=== PATIENT | male | born 1965 | race Caucasian/White ===

== ENCOUNTER 2017-03-03 16:03 | Emergency (ER) | payer OTHER ==
--- NOTE | 2017-03-03 17:12 | ED Physician Documentation ---
PD HPI UPPER EXT INJURY - Stated complaint Stated Complaint: LT UE LAC - Chief complaint Chief Complaint: Laceration - History obtained from History obtained from: Patient - History of Present Illness Location: Left, Wrist Type of injury: Laceration (from edge of broken glass that he was putting in the trash.) Where injury occurred: Home Timing - details: Abrupt onset, Still present Worsened by: Moving (wound starts bleeding again with ROM) Associated symptoms: No: Weakness, Numbness Contributing factors: No: Anticoagulated Review of Systems Skin: reports: Laceration (s) Neurologic: denies: Focal weakness, Numbness PD PAST MEDICAL HISTORY - Past Medical History Past Medical History: No - Past Surgical History Past Surgical History: Yes General: Colonoscopy - Allergies Allergies/Adverse Reactions: Allergies Allergy/AdvReac Type Severity Reaction Status Date / Time No Known Drug Allergies Allergy Verified 03/03/17 16:11 - Social History Does the pt smoke?: No Smoking Status: Never smoker Does the pt drink ETOH?: No Does the pt have substance abuse?: No - Immunizations Immunizations are current?: Yes - POLST Patient has POLST: No PD ED PE NORMAL - Vitals Vital signs reviewed: Yes - General General: Alert and oriented X 3, No acute distress, Well developed/nourished - Derm Derm: Normal color, Warm and dry - Extremities Extremities: Other (right wrist with laceration that opens with ROM. ) - Neuro Neuro: No motor deficit, No sensory deficit Results - Vitals Vitals: Vital Signs - 24 hr 03/03/17 03/03/17 16:10 17:48 Temperature 36.7 C Heart Rate 71 57 L Respiratory 16 14 Rate Blood Pressure 159/89 H 152/76 H O2 Saturation 100 98 Oxygen O2 Source Room air Procedures - Laceration (location) left wrist Wound type: Curved Neurovascular status: Sensory intact, Motor intact Tendon involvement: Tendon intact Anesthesia: Lidocaine 1% with epi Wound Preparation: Wound explored, Wound edges modified. No: FB identified Skin layer closure: Nylon, Running, Size #-0 - enter number (4), Sutures - enter # (8) Other: Patient tolerated well, No complications, Neurovascular intact, Dressing applied, Tetanus UTD Complexity: Simple PD MEDICAL DECISION MAKING - ED course Complexity details: considered differential, d/w patient Departure - Departure Disposition: 01 Home, Self Care Clinical Impression: Laceration of left wrist Qualifiers: Encounter type: initial encounter Qualified Code(s): S61.512A - Laceration without foreign body of left wrist, initial encounter Condition: Stable Record reviewed to determine appropriate education?: Yes Instructions: ED Laceration All Comments: It is okay to wash and shower. Clean off the wound twice a day with soap and water, or peroxide and water. Apply some antibiotic ointment to it to keep it moist. Also to watch for signs of infection such as purulence, redness or increasing pain. Return to your primary care or the ER at the specified time for suture removal. Suture removal in 10-12 days. Use of wrist and hands is okay but try to avoid really heavy lifting/use of it the first several days. Discharge Date/Time: 03/03/17 17:51
[2017-03-03 17:49] VITALS: BP 152/76
== END 2017-03-03 17:51 | disposition home or self-care (01) ==
LOC: ED 16:03
DX: S61.512A Laceration without foreign body of left wrist, initial encounter (principal); W25.XXXA Contact with sharp glass, initial encounter; Y92.019 Unspecified place in single-family (private) house as the place of occurrence of the external cause
CPT/HCPCS: 12001; 99282; 99283

== ENCOUNTER 2022-11-04 13:47 | Emergency (ER) | payer OTHER ==
[2022-11-04 14:25] LABS: BASOPHILS % (AUTO) 0.3 %; EOSINOPHILS # (AUTO) 0.1 10^3/uL (0.0-0.7); EOSINOPHILS % (AUTO) 0.8 %; HCT - HEMATOCRIT 46.1 % (42.0-52.0); HGB - HEMOGLOBIN 15.4 g/dL (14.0-18.0); LYMPHOCYTES # (AUTO) 1.1 10^3/uL (1.5-3.5); LYMPHOCYTES % (AUTO) 16.8 %; MEAN CORPUSCULAR HEMOGLOBIN 30.9 pg (27.0-31.0); MEAN CORPUSCULAR HGB CONC 33.4 g/dL (32.0-36.0); MEAN CORPUSCULAR VOLUME 92.6 fL (80.0-94.0); MEAN PLATELET VOLUME 8.9 fL (7.4-11.4); MONOCYTES # (AUTO) 0.5 10^3/uL (0.0-1.0); MONOCYTES % (AUTO) 8.1 %; NEUTROPHILS # (AUTO) 4.6 10^3/uL (1.5-6.6); NEUTROPHILS % (AUTO) 73.7 %; PLT - PLATELET COUNT 275 10^3/uL (130-450); RED BLOOD COUNT 4.98 10^6/uL (4.70-6.10); RED CELL DISTRIBUTION WIDTH 12.1 % (12.0-15.0); WHITE BLOOD COUNT 6.3 x10^3/uL (4.8-10.8)
--- NOTE | 2022-11-04 14:26 | XRAY Report ---
PROCEDURE: Chest 1 View X-Ray INDICATIONS: Chest pain TECHNIQUE: One view of the chest was acquired. COMPARISON: None. FINDINGS: Surgical changes and devices: None. Lungs and pleura: No pleural effusions or pneumothorax. Lungs are clear. Mediastinum: Mediastinal contours appear normal. Heart size is normal. Bones and chest wall: No suspicious bony lesions. Overlying soft tissues appear unremarkable. IMPRESSION: No acute pulmonary process. Reviewed by: Merna Kelly MD on 11/04/2022 2:24 PM PST Approved by: Merna Kelly MD on 11/04/2022 2:24 PM PST Station ID: [id number]
[2022-11-04 14:42] LABS: ALBUMIN 4.8 g/dL (3.2-5.5); ALBUMIN/GLOBULIN RATIO 1.3 (1.0-2.2); BILIRUBIN,TOTAL 0.7 mg/dL (0.2-1.0); CALCIUM 9.8 mg/dL (8.5-10.3); CREATININE 0.8 mg/dL (0.6-1.2); POTASSIUM 4.2 mmol/L (3.5-5.0); TOTAL PROTEIN 8.4 g/dL (6.7-8.2)
--- NOTE | 2022-11-04 15:37 | ED Physician Documentation ---
PD HPI CHEST PAIN - Stated complaint Stated Complaint: TIGHTNESS IN CHEST, LIGHTHEADE,IRREG HB - Chief complaint Chief Complaint: Cardiac - History obtained from History obtained from: Patient - Additional information Additional information: 57 year old gentleman with history of PVCs. No structural or ischemic heart disease in the past. He has been seen for the PVCs by scheduled cardiology and is on diltiazem for those. He drank a little more than usual last night watching the football game. Today around 1030. Had an increase in palpitations with neck pressure and mild pain. It is gone now. There is no exertional component to it Review of Systems Constitutional: denies: Fatigue Nose: denies: Rhinorrhea / runny nose Cardiac: denies: Pedal edema, Calf pain Respiratory: denies: Dyspnea, Cough PD PAST MEDICAL HISTORY - Past Surgical History Past Surgical History: Yes General: Colonoscopy - Allergies Allergies/Adverse Reactions: Allergies Allergy/AdvReac Type Severity Reaction Status Date / Time No Known Drug Allergies Allergy Verified 11/04/22 13:58 - Social History Does the pt smoke?: No Smoking Status: Never smoker Does the pt drink ETOH?: Yes ETOH Use: Beer (daily) Does the pt have substance abuse?: No - Immunizations Immunizations are current?: Yes - POLST Patient has POLST: No PD ED PE NORMAL - Vitals Vital signs reviewed: Yes - General General: Alert and oriented X 3, No acute distress - HEENT HEENT: PERRL - Neck Neck: Supple, no meningeal sign - Cardiac Cardiac: RRR, No murmur - Respiratory Respiratory: No respiratory distress, Clear bilaterally - Abdomen Abdomen: Non tender - Back Back: No CVA TTP, No spinal TTP - Derm Derm: Normal color, Warm and dry - Extremities Extremities: No edema, No calf tenderness / cord - Neuro Neuro: Alert and oriented X 3, Normal speech Results - Vitals Vitals: Vital Signs - 24 hr 11/04/22 11/04/22 13:53 15:50 Temperature 36.4 C L Heart Rate 85 70 Respiratory 16 20 Rate Blood Pressure 180/89 H 182/90 H O2 Saturation 100 96 Oxygen O2 Source Room air - EKG (time done) 1401 Rate: Rate (enter#) (72) Rhythm: NSR [place]: Normal Intervals: RBBB (incomplete) Ischemia: Normal ST segments - Labs Labs: Laboratory Tests 11/04/22 11/04/22 11/04/22 14:21 14:21 14:21 WBC 6.3 RBC 4.98 Hgb 15.4 Hct 46.1 MCV 92.6 MCH 30.9 MCHC 33.4 RDW 12.1 Plt Count 275 MPV 8.9 Neut # (Auto) 4.6 Lymph # (Auto) 1.1 L Schley # (Auto) 0.5 Eos # (Auto) 0.1 Baso # (Auto) 0.0 Absolute Nucleated RBC 0.00 Nucleated RBC % 0.0 Sodium 137 Potassium 4.2 Chloride 97 L Carbon Dioxide 27 Anion Gap 13.0 BUN 15 Creatinine 0.8 Estimated GFR (MDRD) 100 Glucose 118 H Calcium 9.8 Total Bilirubin 0.7 AST 35 ALT 55 Alkaline Phosphatase 97 Troponin I High Sens 5.0 Total Protein 8.4 H Albumin 4.8 Globulin 3.6 Albumin/Globulin Ratio 1.3 Lipase 33 - Rads (name of study) 1v cxr- normal Radiology: Final report received, EMP read indepedently PD Medical Decision Making - ED course ED course: 57-year-old him with recurrent resolve palpitations after drinking a little more than normal last night. He has a history of PVCs and this is likely what happened. There is no evidence of ischemic heart disease on work up and his s Departure - Departure Disposition: 01 Home, Self Care Clinical Impression: Palpitations Condition: Good Record reviewed to determine appropriate education?: Yes Instructions: ED Palpitations Comments: You were seen today for palpitations, we suspect this is an exacerbation of your underlying known premature ventricular contractions, which are generally dangerous. We did basic bloodwork, including a CBC and CMP, which were normal. Chest x-ray normal. EKG was normal save in incomplete right bundle branch block. And tripling was negative, the most important thing. Follow up with your home improvement contractor as scheduled. Temper your alcohol use a bit and drink plenty of other fluids. Not too much caffeine. Return if worse. Discharge Date/Time: 11/04/22 15:54
[2022-11-04 15:51] VITALS: BP 182/90
== END 2022-11-04 15:54 | disposition home or self-care (01) ==
LOC: ED 13:47
DX: R00.2 Palpitations (principal); I45.10 Unspecified right bundle-branch block
CPT/HCPCS: 36415; 80053; 83690; 84484; 85025; 93005; 99283; 99284